=== PATIENT | male | born 1970 | race Caucasian/White ===

== ENCOUNTER 2022-06-17 06:49 | Emergency (ER) | payer OTHER ==
[~2022-06-17] VITALS: Ht 177.8 cm; Wt 136.0 kg
[2022-06-17 08:46] LABS: BASOPHILS % 0.3 % (0.0-2.0); EOSINOPHILS % 0.5 % (0.0-5.0); HEMOGLOBIN. 15.8 g/dL (14.0-18.0); LYMPHOCYTES % 8.2 % (20.0-50.0); MEAN CORPUSCULAR HEMOGLOBIN 28.3 pg (28.0-32.0); MEAN CORPUSCULAR VOLUME 84.3 fL (80.0-94.0); MEAN PLATELET VOLUME 6.9 fl (7.4-10.4); MONOCYTES % 5.5 % (2.0-8.0); NEUTROPHILS % 85.5 % (40.0-76.0); PLATELET 352 x1000/uL (130-400); RED BLOOD CELL COUNT 5.58 mill/uL (4.7-6.1); RED CELL DISTRIBUTION WIDTH 14.1 % (11.6-14.6)
[2022-06-17 09:01] LABS: CHLORIDE 113 mEq/L (98-107)
[2022-06-17 09:07] LABS: ETHANOL BLOOD < 10 mg/dL
[2022-06-17 12:02] LABS: CLARITY URINE CLEAR (CLEAR); COLOR URINE YELLOW (YELLOW); KETONES URINE NEGATIVE (NEGATIVE); LEUKOCYTE ESTERASE URINE NEGATIVE (NEGATIVE); NITRITE URINE NEGATIVE (NEGATIVE); OCCULT BLOOD URINE NEGATIVE (NEGATIVE); PROTEIN URINE 2+ (NEGATIVE); SPECIFIC GRAVITY URINE 1.017 (1.005-1.030); UROBILINOGEN URINE 0.2 E.U./dL (0.2-1.0)
[2022-06-17 12:31] LABS: *AMPHETAMINES SCREEN URINE PRESUMTIVE POSITIVE (NEGATIVE); *BARBITURATES SCREEN URINE NEGATIVE (NEGATIVE); *BENZODIAZEPINES SCREEN URINE NEGATIVE (NEGATIVE); *COCAINE SCREEN URINE NEGATIVE (NEGATIVE); CANNABINOID URINE SCREEN NEGATIVE (NEGATIVE); METHADONE URINE SCREEN NEGATIVE (NEGATIVE); OPIATES URINE SCREEN NEGATIVE (NEGATIVE); PHENCYCLIDINE URINE SCREEN NEGATIVE (NEGATIVE)
[2022-06-17 12:47] VITALS: BP 121/89
== END 2022-06-17 12:57 | disposition home or self-care (01) ==
LOC: ER 06:49
DX: T43.641A Poisoning by ecstasy, accidental (unintentional), initial encounter (principal); F16.188 Hallucinogen abuse with other hallucinogen-induced disorder; R46.89 Other symptoms and signs involving appearance and behavior; Y92.89 Other specified places as the place of occurrence of the external cause
CPT/HCPCS: 36415; 80053; 80305; 80320; 81003; 85025; 99285; G0480